=== PATIENT | female | born 1965 | race Caucasian/White ===

== ENCOUNTER 2017-08-16 23:50 | Emergency (ER) | payer OTHER ==
[2017-08-17 00:01] VITALS: BP 144/96
--- NOTE | 2017-08-17 00:34 | EDM.PDOC ---
ED HPI GENERAL MEDICAL PROBLEM - General Chief Complaint: Lower Extremity Injury/Pain Stated Complaint: CAST CUTTING OFF CIRCULATION Time Seen by Provider: 08/17/17 00:09 Source of Information: Reports: Patient History Limitations: Reports: No Limitations - History of Present Illness INITIAL COMMENTS - FREE TEXT/NARRATIVE: The patient presents with pain to her left foot. She has a pressure ulcer on her left great toe. She has had this for months and she is now seeing Dr Sen and she has a cast on her foot for 10 days and then it is replaced. She had this current cast put on Monday. There is a crease to the top of her foot and that is causing her pain. She is a diabetic and she can feel the pain so she knows it is bad. She has some peripheral neuropathy. Onset: Gradual Duration: Day(s): Location: Reports: Lower Extremity, Left (foot) Quality: Reports: Sharp Severity: Moderate Improves with: Reports: None Worsens with: Reports: None Associated Symptoms: Reports: No Other Symptoms Left Feet Pain Score (Numeric/FACES): 5 - Related Data Allergies Allergy/AdvReac Type Severity Reaction Status Date / Time latex Allergy Rash Verified 08/11/15 18:31 metformin Allergy Diarrhea Verified 08/17/17 00:01 Home Meds: Home Meds Acetaminophen/HYDROcodone [[place] 325-5 MG] 1 tab PO Q6H PRN #8 tab 10/05/14 [Rx] Furosemide 40 mg PO DAILY 10/05/14 [History] Insulin Glarg,Human.Rec.Analog [LantUS] 40 unit SUBCUT DAILY 10/05/14 [History] Levothyroxine [Sythroid] 100 mcg PO DAILY 10/05/14 [History] Pantoprazole [Protonix] 40 mg PO DAILY 10/05/14 [History] Ramipril [Altace] 20 mg PO DAILY 10/05/14 [History] Sertraline [Zoloft] 100 mg PO DAILY 10/05/14 [History] Vitamin D. 1 tab PO DAILY 10/05/14 [History] Zolpidem [Ambien] 5 mg PO BEDTIME PRN 10/05/14 [History] amLODIPine Besylate [Amlodipine Besylate] 10 mg PO DAILY 10/05/14 [History] Amoxicillin/Clavulanate K [Augmentin 875 MG/125 MG] 1 tab PO Q12HR #13 tablet [Rx] Past Medical History Genitourinary History: Reports: UTI, Recurrent Musculoskeletal History: Reports: Arthritis Psychiatric History: Reports: Anxiety, Depression, Mood Swings Endocrine/Metabolic History: Reports: Diabetes, Type II, Hypothyroidism, Obesity /BMI 30+, Vitamin D Deficiency Dermatologic History: Reports: Psoriasis - Past Surgical History GI Surgical History: Reports: Appendectomy, Cholecystectomy, Other (See Below) Other GI Surgeries/Procedures: gastric bipass Female Surgical History: Reports: Hysterectomy, Other (See Below) Other Female Surgeries/Procedures: bladder sling Social & Family History - Family History Family Medical History: Noncontributory - Tobacco Use Smoking Status *Q: Never Smoker Second Hand Smoke Exposure: No - Caffeine Use Caffeine Use: Reports: Soda - Alcohol Use Days Per Week of Alcohol Use: 0 - Recreational Drug Use Recreational Drug Use: No Review of Systems - Review of Systems Review Of Systems: See Below Constitutional: Reports: No Symptoms Eyes: Reports: No Symptoms Ears: Reports: No Symptoms Nose: Reports: No Symptoms Mouth/Throat: Reports: No Symptoms Respiratory: Reports: No Symptoms Cardiovascular: Reports: No Symptoms GI/Abdominal: Reports: No Symptoms Genitourinary: Reports: No Symptoms Musculoskeletal: Reports: Other (Left foot pain) ED EXAM, GENERAL - Physical Exam Exam: See Below Exam Limited By: No Limitations General Appearance: Alert, No Apparent Distress Ears: Normal External Exam Nose: Normal Inspection Head: Atraumatic, Normocephalic Neck: Normal Inspection Respiratory/Chest: No Respiratory Distress Extremities: Other (Left foot has a cast that completely covers here foot and goes up to the knee. I cut it off and he toe has a dressing on. There is no pressure ulcer. There is some psoriasis on her foot.) Course - Vital Signs Last Recorded V/S: Last Vital Signs Temp 96.5 F 08/16/17 23:56 Pulse 82 08/16/17 23:56 Resp 18 08/16/17 23:56 BP 144/96 H 08/16/17 23:56 Pulse Ox 96 08/16/17 23:56 - Re-Assessments/Exams Free Text/Narrative Re-Assessment/Exam: 08/17/17 00:32 I cut her cast off. She feels better. She has a walking shoe. I will have her call Dr Sen in the morning. Departure - Departure Time of Disposition: 00:35 Disposition: Home, Self-Care 01 Condition: Good Clinical Impression: Skin ulcer of left great toe Qualifiers: Non-pressure ulcer stage: unspecified non-pressure ulcer stage Qualified Code(s ): L97.529 - Non-pressure chronic ulcer of other part of left foot with unspecified severity - Discharge Information Referrals: Denise Ho MD [Primary Care Provider] - Joel Sen II DPM [Physician] - Additional Instructions: Call Dr Sen's office in the morning. Please return if you are worse.
== END 2017-08-17 00:41 | disposition home or self-care (01) ==
LOC: JD.ED 23:50
DX: E11.622 Type 2 diabetes mellitus with other skin ulcer (principal); L97.529 Non-pressure chronic ulcer of other part of left foot with unspecified severity; F32.9 Major depressive disorder, single episode, unspecified; E03.9 Hypothyroidism, unspecified; Z79.4 Long term (current) use of insulin; Z79.899 Other long term (current) drug therapy; Z88.8 Allergy status to other drugs, medicaments and biological substances; Z91.040 Latex allergy status
CPT/HCPCS: 99283

== ENCOUNTER 2018-10-08 09:33 | Emergency (ER) | payer OTHER ==
[2018-10-08] MEDS ORDERED: Sodium Chloride 0.9% 1,000 ML IV ONE ×4 (09:46→12:21)
[2018-10-08] MEDS ORDERED: Sodium Chloride 0.9% 10 ML Syringe FLUSH PRN (10:03)
[2018-10-08] MEDS ORDERED: Insulin Regular, Human 100 Units/ML 3 ML Vial IVPUSH ONE (10:04)
--- NOTE | 2018-10-08 11:06 | EDM.PDOC ---
ED HPI GENERAL MEDICAL PROBLEM - General Chief Complaint: Diabetic Complaint Stated Complaint: [facility] Time Seen by Provider: 10/08/18 09:57 Source of Information: Reports: Patient, RN Notes Reviewed - History of Present Illness INITIAL COMMENTS - FREE TEXT/NARRATIVE: 53-year-old female has not felt well for the past 7-10 days. He should does present with altered mental status so history is primarily obtained from her and EMS. Her states that she has been coughing, not feeling well for the last 10 days or so. Also has had similar symptoms and has tested influenza positive. This morning she fell either into or against a balanced of and "could not get up" she has been transported here by [facility]. She is known insulin-dependent diabetic. Her blood sugar reading on arrival is greater than 400. She is not able to tell us at this time when her glucose started going up. Treatments NEONATAL DOCTOR: Reports: Other (see below) Other Treatments NEONATAL DOCTOR: see EMS report - Related Data Allergies Allergy/AdvReac Type Severity Reaction Status Date / Time latex Allergy Rash Verified 10/08/18 09:50 metformin AdvReac Diarrhea Verified 10/08/18 10:14 Home Meds: Home Meds Acetaminophen/HYDROcodone [[place] 325-5 MG] 1 tab PO Q6H PRN #8 tab 10/05/14 [Rx] Furosemide 40 mg PO DAILY 10/05/14 [History] Insulin Glarg,Human.Rec.Analog [LantUS] 0 unit SUBCUT DAILY 10/05/14 [History] Levothyroxine [Sythroid] 200 mcg PO MOFR 10/05/14 [History] Pantoprazole [Protonix] 40 mg PO DAILY 10/05/14 [History] Ramipril [Altace] 10 mg PO BID 10/05/14 [History] Sertraline [Zoloft] 150 mg PO DAILY 10/05/14 [History] Zolpidem [Ambien] 5 mg PO BEDTIME PRN 10/05/14 [History] Fobgn-A-Ukzhvocpoqrmk [Anti-Gas] 600 mg PO ASDIRECTED 10/08/18 [History] Cholecalciferol (Vitamin D3) [Vitamin D3] 5,000 intnl unit PO DAILY 10/08/18 [ History] Cyanocobalamin (Vitamin B-12) [Vitamin B12] 2,500 mcg PO DAILY 10/08/18 [History ] Cyclobenzaprine [Flexeril] 0 mg PO ASDIRECTED 10/08/18 [History] Ferrous Sulfate [Iron] 0 mg PO DAILY 10/08/18 [History] Folic Acid 800 mcg PO DAILY 10/08/18 [History] Iron,Carbonyl/Ascorbic Acid [Iron 100-Vitamin C Tablet] 65 mg PO DAILY 10/08/18 [History] L.acidoph,Paracasei, B.lactis [Probiotic] 1 cap PO DAILY 10/08/18 [History] Levothyroxine 175 mcg PO SUTUWETHSA 10/08/18 [History] Vitamin B6-pyridOXINE 100 mg PO DAILY 10/08/18 [History] buPROPion HCl [Wellbutrin SR] 150 mg PO DAILY 10/08/18 [History] hydrOXYzine HCl [hydrOXYzine] 75 mg PO BEDTIME 10/08/18 [History] Past Medical History Genitourinary History: Reports: UTI, Recurrent Musculoskeletal History: Reports: Arthritis Psychiatric History: Reports: Anxiety, Depression, Mood Swings Endocrine/Metabolic History: Reports: Diabetes, Type II, Hypothyroidism, Obesity /BMI 30+, Vitamin D Deficiency Dermatologic History: Reports: Psoriasis - Past Surgical History GI Surgical History: Reports: Appendectomy, Cholecystectomy, Other (See Below) Other GI Surgeries/Procedures: gastric bipass Female Surgical History: Reports: Hysterectomy, Other (See Below) Other Female Surgeries/Procedures: bladder sling Social & Family History - Family History Family Medical History: Noncontributory - Caffeine Use Caffeine Use: Reports: Soda ED ROS GENERAL - Review of Systems Review Of Systems: Unable To Obtain (Unable to obtain reliable complete review of systems due to altered mental status of patient, she currently does deny chest or abdominal pain, denies headache) Cardiovascular: Denies: Chest Pain GI/Abdominal: Denies: Abdominal Pain ED EXAM GENERAL NO PERIP PULSE - Physical Exam Exam: See Below General Appearance: Other (Awake but very ill-appearing) Eye Exam: Bilateral Eye: PERRL, Other (Eyes are sunken bilateral) Ears: Normal External Exam Throat/Mouth: Other (Mucosa very dry) Head: Atraumatic Neck: Supple, Non-Tender Respiratory/Chest: No Respiratory Distress, Lungs Clear, Respiratory Distress. No: Rales, Rhonchi, Wheezing Cardiovascular: Tachycardia GI/Abdominal: Soft, Non-Tender. No: Guarding Extremities: Normal Inspection, Normal Range of Motion Neurological: Alert, Oriented, No Motor/Sensory Deficits Skin Exam: Warm, Dry, Pallor Course - Vital Signs Last Recorded V/S: Last Vital Signs Temp 97.7 F 10/08/18 09:50 Pulse 109 H 10/08/18 09:50 Resp 28 H 10/08/18 09:50 BP 118/81 10/08/18 09:50 Pulse Ox 99 10/08/18 09:50 - Orders/Labs/Meds Orders: Active Orders 24 hr Category Date Time Status Insert Kennedy Catheter [Insert Urinary Catheter] [OM.PC] Care 10/08/18 10:50 Ordered Stat Peripheral IV Care [RC] . DIRECTED Care 10/08/18 10:03 Active Urinary Catheter Assessment [RC] ASDIRECTED Care 10/08/18 10:50 Active Insulin Regular, Human [HumuLIN R] 100 unit Med 10/08/18 10:15 Active Sodium Chloride 0.9% [Normal Saline] 99 ml IV TITRATE Sodium Bicarbonate [Sodium Bicarbonate 8.4%] 150 meq Med 10/08/18 14:09 Active Dextrose 5% in Water 1,000 ml IV ONETIME Sodium Chloride 0.9% [Normal Saline] 2,000 ml Med 10/08/18 13:01 Active IV ONETIME Sodium Chloride 0.9% [Normal Saline] 2,000 ml Med 10/08/18 14:16 Active IV ONETIME Sodium Chloride 0.9% [Saline Flush] Med 10/08/18 10:03 Active 10 ml FLUSH ASDIRECTED PRN Peripheral IV Insertion Adult [OM.PC] Stat Oth 10/08/18 10:03 Ordered Medication Orders Insulin Human Regular 100 unit (/ Sodium Chloride) 100 mls @ 5 mls/hr IV TITRATE LALITHA; Protocol Last Admin: 10/08/18 10:34 Dose: 5 units/hr, 5 mls/hr Sodium Chloride (Normal Saline) 2,000 mls @ 999 mls/hr IV ONETIME ONE Stop: 10/08/18 15:01 Last Admin: 10/08/18 13:10 Dose: 999 mls/hr Sodium Bicarbonate 150 meq/ (Dextrose/Water) 1,150 mls @ 150 mls/hr IV ONETIME ONE Stop: 10/08/18 21:48 Sodium Chloride (Normal Saline) 2,000 mls @ 999 mls/hr IV ONETIME ONE Stop: 10/08/18 16:16 Last Admin: 10/08/18 14:20 Dose: 999 mls/hr Sodium Chloride (Saline Flush) 10 ml FLUSH ASDIRECTED PRN PRN Reason: Keep Vein Open Last Admin: 10/08/18 10:38 Dose: 10 ml Labs: Laboratory Tests 10/08/18 10/08/18 10/08/18 Range/Units 09:45 09:45 09:45 WBC 22.59 H (3.98-10.04) K/mm3 RBC 4.92 (3.98-5.22) M/mm3 Hgb 13.2 (11.2-15.7) gm/L Hct 41.6 (34.1-44.9) % MCV 84.6 (79.4-94.8) fl MCH 26.8 (25.6-32.2) pg MCHC 31.7 L (32.2-35.5) g/dl RDW Std Deviation 49.8 H (36.4-46.3) fL Plt Count 599 H (182-369) K/mm3 MPV 10.8 (9.4-12.3) fl Neut % (Auto) 73.7 H (34.0-71.1) % Lymph % (Auto) 11.5 L (19.3-51.7) % [place] % (Auto) 10.9 (4.7-12.5) % Eos % (Auto) 0.3 L (0.7-5.8) Baso % (Auto) 0.4 (0.1-1.2) % Neut # (Auto) 16.63 H (1.56-6.13) K/mm3 Lymph # (Auto) 2.60 (1.18-3.74) K/mm3 [place] # (Auto) 2.47 H (0.24-0.36) K/mm3 Eos # (Auto) 0.07 (0.04-0.36) K/mm3 Baso # (Auto) 0.09 H (0.01-0.08) K/mm3 Manual Slide Review Abnormal smear Puncture Site ABG pH (7.35-7.45) ABG pCO2 (35.0-45.0) mmHg ABG pO2 (80.0-100.0) mmHg ABG HCO3 (22.0-26.0) meq/L ABG O2 Saturation (96.0-97.0) % ABG Base Excess (-2-2.0) Jose Manuel Test A-a Gradient mmHg O2 Delivery Device FiO2 (21.00-100.00) % Sodium 125 L (136-145) mEq/L Potassium 6.7 H* (3.5-5.1) mEq/L Chloride 86 L (98-107) mEq/L Carbon Dioxide 5 L* (21-32) mEq/L Anion Gap 40.7 H (5-15) BUN 27 H (7-18) mg/dL Creatinine 2.3 H (0.55-1.02) mg/dL Est Cr Clr Drug Dosing TNP Estimated GFR (MDRD) 22 (>60) mL/min BUN/Creatinine Ratio 11.7 L (14-18) Glucose 659 H* (74-106) mg/dL Lactic Acid (0.4-2.0) mmol/L Calcium 9.5 (8.5-10.1) mg/dL Total Bilirubin 0.7 (0.2-1.0) mg/dL AST 26 (15-37) U/L ALT 44 (14-59) U/L Alkaline Phosphatase 227 H (46-116) U/L Total Protein 8.7 H (6.4-8.2) g/dl Albumin 3.3 L (3.4-5.0) g/dl Globulin 5.4 gm/dL Albumin/Globulin Ratio 0.6 L (1-2) Urine Color (Yellow) Urine Appearance (Clear) Urine pH (5.0-8.0) Ur Specific [place] (1.005-1.030) Urine Protein (Negative) Urine Glucose (UA) (Negative) Urine Ketones (Negative) Urine Occult Blood (Negative) Urine Nitrite (Negative) Urine Bilirubin (Negative) Urine Urobilinogen (0.2-1.0) Ur Leukocyte Esterase (Negative) Urine RBC (0-5) /hpf Urine WBC (0-5) /hpf Ur Epithelial Cells (0-5) /hpf Urine Bacteria (FEW) /hpf Hyaline Casts (0-5) /lpf Urine Mucus (FEW) /hpf Ketones 16.3 (0.0-0.3) mM 03/11/19 03/11/19 03/11/19 Range/Units 10:05 10:19 10:55 WBC (3.98-10.04) K/mm3 RBC (3.98-5.22) M/mm3 Hgb (11.2-15.7) gm/L Hct (34.1-44.9) % MCV (79.4-94.8) fl MCH (25.6-32.2) pg MCHC (32.2-35.5) g/dl RDW Std Deviation (36.4-46.3) fL Plt Count (182-369) K/mm3 MPV (9.4-12.3) fl Neut % (Auto) (34.0-71.1) % Lymph % (Auto) (19.3-51.7) % [place] % (Auto) (4.7-12.5) % Eos % (Auto) (0.7-5.8) Baso % (Auto) (0.1-1.2) % Neut # (Auto) (1.56-6.13) K/mm3 Lymph # (Auto) (1.18-3.74) K/mm3 [place] # (Auto) (0.24-0.36) K/mm3 Eos # (Auto) (0.04-0.36) K/mm3 Baso # (Auto) (0.01-0.08) K/mm3 Manual Slide Review Puncture Site Rt radial ABG pH 7.07 L* (7.35-7.45) ABG pCO2 10.8 L* (35.0-45.0) mmHg ABG pO2 106.0 H (80.0-100.0) mmHg ABG HCO3 3.0 L (22.0-26.0) meq/L ABG O2 Saturation 94.3 L (96.0-97.0) % ABG Base Excess -27.1 L (-2-2.0) Jose Manuel Test Positive A-a Gradient 15 mmHg O2 Delivery Device Room air FiO2 21.00 (21.00-100.00) % Sodium (136-145) mEq/L Potassium (3.5-5.1) mEq/L Chloride (98-107) mEq/L Carbon Dioxide (21-32) mEq/L Anion Gap (5-15) BUN (7-18) mg/dL Creatinine (0.55-1.02) mg/dL Est Cr Clr Drug Dosing Estimated GFR (MDRD) (>60) mL/min BUN/Creatinine Ratio (14-18) Glucose (74-106) mg/dL Lactic Acid 1.5 (0.4-2.0) mmol/L Calcium (8.5-10.1) mg/dL Total Bilirubin (0.2-1.0) mg/dL AST (15-37) U/L ALT (14-59) U/L Alkaline Phosphatase (46-116) U/L Total Protein (6.4-8.2) g/dl Albumin (3.4-5.0) g/dl Globulin gm/dL Albumin/Globulin Ratio (1-2) Urine Color Yellow (Yellow) Urine Appearance Cloudy H (Clear) Urine pH 5.5 (5.0-8.0) Ur Specific [place] 1.025 (1.005-1.030) Urine Protein 1+ H (Negative) Urine Glucose (UA) 2+ H (Negative) Urine Ketones 4+ H (Negative) Urine Occult Blood 1+ H (Negative) Urine Nitrite Negative (Negative) Urine Bilirubin 2+ H (Negative) Urine Urobilinogen 0.2 (0.2-1.0) Ur Leukocyte Esterase Negative (Negative) Urine RBC 0-5 (0-5) /hpf Urine WBC 0-5 (0-5) /hpf Ur Epithelial Cells Not seen (0-5) /hpf Urine Bacteria Not seen (FEW) /hpf Hyaline Casts 30-40 H (0-5) /lpf Urine Mucus Not seen (FEW) /hpf Ketones (0.0-0.3) mM 10/08/18 10/08/18 Range/Units 11:35 12:48 WBC (3.98-10.04) K/mm3 RBC (3.98-5.22) M/mm3 Hgb (11.2-15.7) gm/L Hct (34.1-44.9) % MCV (79.4-94.8) fl MCH (25.6-32.2) pg MCHC (32.2-35.5) g/dl RDW Std Deviation (36.4-46.3) fL Plt Count (182-369) K/mm3 MPV (9.4-12.3) fl Neut % (Auto) (34.0-71.1) % Lymph % (Auto) (19.3-51.7) % [place] % (Auto) (4.7-12.5) % Eos % (Auto) (0.7-5.8) Baso % (Auto) (0.1-1.2) % Neut # (Auto) (1.56-6.13) K/mm3 Lymph # (Auto) (1.18-3.74) K/mm3 [place] # (Auto) (0.24-0.36) K/mm3 Eos # (Auto) (0.04-0.36) K/mm3 Baso # (Auto) (0.01-0.08) K/mm3 Manual Slide Review Puncture Site Rt radial ABG pH 6.98 L* (7.35-7.45) ABG pCO2 17.2 L* (35.0-45.0) mmHg ABG pO2 121.0 H (80.0-100.0) mmHg ABG HCO3 3.8 L (22.0-26.0) meq/L ABG O2 Saturation 94.2 L (96.0-97.0) % ABG Base Excess -26.8 L (-2-2.0) Jose Manuel Test Positive A-a Gradient mmHg O2 Delivery Device Room air FiO2 21.00 (21.00-100.00) % Sodium 131 L (136-145) mEq/L Potassium 5.3 H (3.5-5.1) mEq/L Chloride 93 L (98-107) mEq/L Carbon Dioxide 6 L* (21-32) mEq/L Anion Gap 37.3 H (5-15) BUN 28 H (7-18) mg/dL Creatinine 2.2 H (0.55-1.02) mg/dL Est Cr Clr Drug Dosing TNP Estimated GFR (MDRD) 23 (>60) mL/min BUN/Creatinine Ratio 12.7 L (14-18) Glucose 499 H (74-106) mg/dL Lactic Acid (0.4-2.0) mmol/L Calcium 8.8 (8.5-10.1) mg/dL Total Bilirubin 0.6 (0.2-1.0) mg/dL AST 25 (15-37) U/L ALT 41 (14-59) U/L Alkaline Phosphatase 210 H (46-116) U/L Total Protein 8.0 (6.4-8.2) g/dl Albumin 3.0 L (3.4-5.0) g/dl Globulin 5.0 gm/dL Albumin/Globulin Ratio 0.6 L (1-2) Urine Color (Yellow) Urine Appearance (Clear) Urine pH (5.0-8.0) Ur Specific [place] (1.005-1.030) Urine Protein (Negative) Urine Glucose (UA) (Negative) Urine Ketones (Negative) Urine Occult Blood (Negative) Urine Nitrite (Negative) Urine Bilirubin (Negative) Urine Urobilinogen (0.2-1.0) Ur Leukocyte Esterase (Negative) Urine RBC (0-5) /hpf Urine WBC (0-5) /hpf Ur Epithelial Cells (0-5) /hpf Urine Bacteria (FEW) /hpf Hyaline Casts (0-5) /lpf Urine Mucus (FEW) /hpf Ketones (0.0-0.3) mM Meds: Medications Generic Name Dose Route Start Last Admin Trade Name Freq PRN Reason Stop Dose Admin Insulin Human Regular 100 unit 100 mls @ 5 mls/hr 10/08/18 10:15 10/08/18 10: 34 / Sodium Chloride IV 5 units/hr TITRATE LALITHA 5 mls/hr Administration Protocol 5 UNITS/HR Sodium Chloride 2,000 mls @ 999 mls/hr 10/08/18 13:01 10/08/18 13:10 Normal Saline IV 10/08/18 15:01 999 mls/hr ONETIME ONE Administration Sodium Bicarbonate 150 meq/ 1,150 mls @ 150 mls/hr 10/08/18 14:09 Dextrose/Water IV 10/08/18 21:48 ONETIME ONE Sodium Chloride 2,000 mls @ 999 mls/hr 10/08/18 14:16 10/08/18 14:20 Normal Saline IV 10/08/18 16:16 999 mls/hr ONETIME ONE Administration Sodium Chloride 10 ml 10/08/18 10:03 10/08/18 10:38 Saline Flush FLUSH 10 ml ASDIRECTED PRN Administration Keep Vein Open Discontinued Medications Generic Name Dose Route Start Last Admin Trade Name Freq PRN Reason Stop Dose Admin Sodium Chloride 1,000 mls @ 999 mls/hr 10/08/18 09:46 10/08/18 09:55 Normal Saline IV 10/08/18 10:46 999 mls/hr ONETIME ONE Administration Sodium Chloride 1,000 mls @ 999 mls/hr 10/08/18 10:15 10/08/18 10:25 Normal Saline IV 10/08/18 11:15 999 mls/hr ONETIME ONE Administration Sodium Chloride 1,000 mls @ 999 mls/hr 10/08/18 11:47 10/08/18 11:53 Normal Saline IV 10/08/18 12:47 999 mls/hr ONETIME ONE Administration Sodium Chloride 1,000 mls @ 999 mls/hr 10/08/18 12:21 10/08/18 12:28 Normal Saline IV 10/08/18 13:21 999 mls/hr ONETIME ONE Administration Insulin Human Regular 5 unit 10/08/18 10:04 10/08/18 10:29 Humulin R IVPUSH 10/08/18 10:05 5 unit ONETIME ONE Administration Protocol Oseltamivir Phosphate 75 mg 10/08/18 12:18 10/08/18 12:32 Tamiflu PO 10/08/18 12:19 75 mg ONETIME ONE Administration - Re-Assessments/Exams Free Text/Narrative Re-Assessment/Exam: 10/08/18 11:31. Patient presented with elevated blood sugar, generalized weakness, altered mental status. Initial blood sugar reading was greater than 400. She clinically is obviously very dehydrated on initial exam was very dry mouth, sunken tongue, increased respirations and altered mental status for a suggestive for diabetic ketoacidosis. ABGs do confirm severe diabetic ketoacidosis with pH 7.07, bicarbonate of only 3, CO2 10.8. Venous labs show sodium 125, artificially low with a high blood sugar, potassium 6.7 artificial high with her acidosis. anion Gap of 40.7 BUN 27 creatinine 2.3 lactic acid 1.5 ketones 16.3. We do have 2 IVs going of normal saline wide open, she was initially given insulin 5 units IV and have her on insulin drip at 5 units per hour. 10/08/18 12:14. Repeat labs drawn a short time ago show glucose of 499, potassium improved to 5.3, CO2 of 6, see report for details. Have discussed with Dr. Orozco, regarding admisison. 13:00. Repeat ABGs, pH is actually worsened the 6.98, CO2 has risen to 17.2, PO2 121. Mental status remains about the same, she still is drowsy but very aware of what is going on, does answer questions appropriately. She's had a total of 4 L normal saline, working on liters 5 and 6. Insulin drip continues at 5 units per hour. 10/08/18 13:45. Dr Orozco has requested transfer to a [facility], will need higher level of care, projected stay beyond our "4 day limitation for length of stay"14:12. Dr Dimas, Critical Care Medicine does accept patient in transfer, he has advised start a bicarb drip. That is getting done. Will be transferring by ground ambulance. Departure - Departure Time of Disposition: 14:15 Disposition: DC/Tfer to Acute Hospital 02 Condition: Critical Clinical Impression: Diabetic ketoacidosis Qualifiers: Diabetes mellitus type: due to underlying condition Diabetes mellitus complication detail: without coma Qualified Code(s): E08.10 - Diabetes mellitus due to underlying condition with ketoacidosis without coma - Discharge Information Referrals: PCP,Unknown [Primary Care Provider] - Forms: ED Department Discharge ED Communication - Discussed Case With (1) Discussed Case With (1): Admitting Provider (Dr Orozco, decision to admit at about 12:05.) - My Orders Last 24 Hours: My Active Orders 10/08/18 10:03 Peripheral IV Care [RC] . DIRECTED Sodium Chloride 0.9% [Saline Flush] 10 ml FLUSH ASDIRECTED PRN Peripheral IV Insertion Adult [OM.PC] Stat 10/08/18 10:15 Insulin Regular, Human [HumuLIN R] 100 unit Sodium Chloride 0.9% [Normal Saline] 99 ml IV TITRATE 10/08/18 10:50 Insert Kennedy Catheter [Insert Urinary Catheter] [OM.PC] Stat Urinary Catheter Assessment [RC] ASDIRECTED 10/08/18 13:01 Sodium Chloride 0.9% [Normal Saline] 2,000 ml IV ONETIME 10/08/18 14:09 Sodium Bicarbonate [Sodium Bicarbonate 8.4%] 150 meq Dextrose 5% in Water 1, 000 ml IV ONETIME 10/08/18 14:16 Sodium Chloride 0.9% [Normal Saline] 2,000 ml IV ONETIME - Assessment/Plan Last 24 Hours: My Active Orders 10/08/18 10:03 Peripheral IV Care [RC] . DIRECTED Sodium Chloride 0.9% [Saline Flush] 10 ml FLUSH ASDIRECTED PRN Peripheral IV Insertion Adult [OM.PC] Stat 10/08/18 10:15 Insulin Regular, Human [HumuLIN R] 100 unit Sodium Chloride 0.9% [Normal Saline] 99 ml IV TITRATE 10/08/18 10:50 Insert Kennedy Catheter [Insert Urinary Catheter] [OM.PC] Stat Urinary Catheter Assessment [RC] ASDIRECTED 10/08/18 13:01 Sodium Chloride 0.9% [Normal Saline] 2,000 ml IV ONETIME 10/08/18 14:09 Sodium Bicarbonate [Sodium Bicarbonate 8.4%] 150 meq Dextrose 5% in Water 1, 000 ml IV ONETIME 10/08/18 14:16 Sodium Chloride 0.9% [Normal Saline] 2,000 ml IV ONETIME
--- NOTE | 2018-10-08 11:58 | CR ---
Chest: Portable view of the chest was obtained. Comparison: No prior chest x-ray. Heart size and mediastinum are normal. Lungs are clear with no acute parenchymal change. Bony structures are grossly intact. Impression: 1. Nothing acute is seen on portable chest x-ray. Diagnostic code #1
[2018-10-08] MEDS ORDERED: Oseltamivir 75 MG Cap PO ONE (12:18)
[2018-10-08] MEDS ORDERED: Sodium Chloride 0.9% 2,000 ML IV ONE ×2 (13:01→14:16)
[2018-10-08] MEDS ORDERED: Sodium Bicarbonate 150 MEQ in Dextrose 5% in Water 1,000 ML IV ONE ×2 (14:09)
[2018-10-08 18:14] VITALS: BP 135/81
== END 2018-10-08 15:35 ==
LOC: JD.ED 09:33
DX: E08.10 Diabetes mellitus due to underlying condition with ketoacidosis without coma (principal); F41.9 Anxiety disorder, unspecified; F32.9 Major depressive disorder, single episode, unspecified; E03.9 Hypothyroidism, unspecified; Z91.040 Latex allergy status; Z88.8 Allergy status to other drugs, medicaments and biological substances; Z79.899 Other long term (current) drug therapy; Z79.4 Long term (current) use of insulin
CPT/HCPCS: 36415; 36600; 51702; 71045; 80053; 81001; 82009; 82803; 82962; 83605; 85025; 87804; 96361; 96365; 96366; 96368; 96376; 99285; A9270; J1815; J7030; J7040; J7060

== ENCOUNTER 2021-07-03 18:39 | Emergency (ER) | payer MEDICARE, OTHER ==
[2021-07-03 18:58] VITALS: BP 133/80; PULSE 87
[2021-07-03] MEDS ORDERED: Ampicillin/Sulbactam Na 3 GM in Sodium Chloride 0.9% 100 ML IV ONE (19:36)
--- NOTE | 2021-07-03 19:49 | EDM.PDOC ---
ED HPI GENERAL MEDICAL PROBLEM - General Chief Complaint: Lower Extremity Injury/Pain Stated Complaint: RT FOOT PAIN Time Seen by Provider: 07/03/21 19:30 Source of Information: Reports: Patient History Limitations: Reports: No Limitations - History of Present Illness INITIAL COMMENTS - FREE TEXT/NARRATIVE: Patient is a 55-year-old female with a history of diabetes presenting with a chief complaint of right foot pain. She states the pain started on Monday. She states that she believes she stepped on a piece of glass. She did get a small piece of glass that came out. However, the pain continued. She started noticed some redness in the area. She went to her doctor yesterday and was started on doxycycline after an x-ray was performed. She has taken a total of 3 doses of doxycycline. Otherwise, she denies any fevers, chills, fatigue, lethargy, nausea, vomiting. Patient does have pain with ambulation. Right Foot Pain Score (Numeric/FACES): 5 - Related Data Allergies Allergy/AdvReac Type Severity Reaction Status Date / Time latex Allergy Rash Verified 07/03/21 18:58 metformin AdvReac Diarrhea Verified 07/03/21 18:58 Home Meds: Home Meds Acetaminophen/HYDROcodone [HYDROcodone-Acetaminophen 5-325 MG *] 1 tab PO Q6H PRN #8 tab 10/05/14 [Rx] Furosemide 40 mg PO DAILY 10/05/14 [History] Insulin Glarg,Human.Rec.Analog [LantUS] 0 unit SUBCUT DAILY 10/05/14 [History] Levothyroxine [Sythroid] 200 mcg PO MOFR 10/05/14 [History] Pantoprazole [Protonix] 40 mg PO DAILY 10/05/14 [History] Sertraline [Zoloft] 150 mg PO DAILY 10/05/14 [History] Zolpidem [Ambien] 5 mg PO BEDTIME PRN 10/05/14 [History] ramipriL [Altace] 10 mg PO BID 10/05/14 [History] Bjfec-E-Vjerthmaiajio [Anti-Gas] 600 mg PO ASDIRECTED 10/08/18 [History] Cholecalciferol (Vitamin D3) [Vitamin D3] 5,000 intnl unit PO DAILY 10/08/18 [History] Cyanocobalamin (Vitamin B-12) [Vitamin B12] 2,500 mcg PO DAILY 10/08/18 [History] Cyclobenzaprine [Flexeril] 0 mg PO ASDIRECTED 10/08/18 [History] Ferrous Sulfate [Iron] 0 mg PO DAILY 10/08/18 [History] Folic Acid 800 mcg PO DAILY 10/08/18 [History] Iron,Carbonyl/Ascorbic Acid [Iron 100-Vitamin C Tablet] 65 mg PO DAILY 10/08/18 [History] L.acidoph,Paracasei, B.lactis [Probiotic] 1 cap PO DAILY 10/08/18 [History] Levothyroxine 175 mcg PO SUTUWETHSA 10/08/18 [History] Vitamin B6-pyridOXINE 100 mg PO DAILY 10/08/18 [History] buPROPion HCL [Wellbutrin SR] 150 mg PO DAILY 10/08/18 [History] hydrOXYzine HCL [hydrOXYzine] 75 mg PO BEDTIME 10/08/18 [History] Past Medical History HEENT History: Reports: Impaired Vision Other HEENT History: wears reading eyeglasses. Cardiovascular History: Reports: High Cholesterol, Hypertension Gastrointestinal History: Reports: GERD, Other (See Below) Other Gastrointestinal History: occasional vomiting, tummy tuck with massive infection after surgery. 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 - Past Surgical History GI Surgical History: Reports: Appendectomy, Cholecystectomy, Other (See Below) Other GI Surgeries/Procedures: gastric bipass Female Surgical History: Reports: Hysterectomy, Other (See Below) Other Female Surgeries/Procedures: bladder sling Musculoskeletal Surgical History: Reports: Hip Replacement Social & Family History - Family History Family Medical History: No Pertinent Family History - Tobacco Use Tobacco Use Status *Q: Never Tobacco User Second Hand Smoke Exposure: No - Caffeine Use Caffeine Use: Reports: Soda Review of Systems - Review of Systems Review Of Systems: Comprehensive ROS is negative, except as noted in HPI. ED EXAM, GENERAL - Physical Exam Exam: See Below Free Text/Narrative:: I have reviewed the triage vital signs Const: Well nourished, well developed, appears stated age Eyes: Pupils Equal and reactive to light bilaterally, no conjunctival injection HENT: No signs of trauma or swelling, Neck supple without meningismus CV: Regular Rate Rhythm, Warm, well-perfused extremities RESP: Unlabored respiratory effort GI: soft, non-tender, non-distended, no masses MSK: No gross deformities appreciated Skin: Right foot demonstrates small area of erythema with mild swelling located on the lateral aspect of the plantar surface of the foot. There is some small amount of streaking to the dorsum of the foot. That extends approximately to the midfoot but not to the ankle at all. Warm, dry. 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 Sensation and motor function of extremities grossly intact. Psych: Appropriate mood and affect. Course - Vital Signs Last Recorded V/S: Last Vital Signs Temp 36.2 C 07/03/21 18:55 Pulse 87 07/03/21 18:55 Resp 16 07/03/21 18:55 BP 133/80 07/03/21 18:55 Pulse Ox 100 07/03/21 18:55 - Orders/Labs/Meds Orders: Active Orders 24 hr Category Date Time Status CULTURE, ANAEROBE & AEROBE [MREF] Stat Lab 07/03/21 19:34 Received Labs: Laboratory Tests 07/03/21 07/03/21 07/03/21 Range/Units 20:00 20:00 20:00 WBC 11.02 H (3.98-10.04) K/mm3 RBC 3.73 L (3.98-5.22) M/mm3 Hgb 11.0 L D (11.2-15.7) gm/dl Hct 34.7 (34.1-44.9) % MCV 93.0 D (79.4-94.8) fl MCH 29.5 (25.6-32.2) pg MCHC 31.7 L (32.2-35.5) g/dl RDW Std Deviation 46.0 (36.4-46.3) fL Plt Count 364 D (182-369) K/mm3 MPV 10.5 (9.4-12.3) fl Neut % (Auto) 58.9 (34.0-71.1) % Lymph % (Auto) 20.1 (19.3-51.7) % [place] % (Auto) 13.8 H (4.7-12.5) % Eos % (Auto) 6.5 H (0.7-5.8) Baso % (Auto) 0.4 (0.1-1.2) % Neut # (Auto) 6.50 H (1.56-6.13) K/mm3 Lymph # (Auto) 2.21 (1.18-3.74) K/mm3 [place] # (Auto) 1.52 H (0.24-0.36) K/mm3 Eos # (Auto) 0.72 H (0.04-0.36) K/mm3 Baso # (Auto) 0.04 (0.01-0.08) K/mm3 Manual Slide Review Abnormal smear Sodium 140 (136-145) mEq/L Potassium 3.7 D (3.5-5.1) mEq/L Chloride 103 (98-107) mEq/L Carbon Dioxide 27 D (21-32) mEq/L Anion Gap 13.7 (5-15) BUN 22 H (7-18) mg/dL Creatinine 1.1 H (0.55-1.02) mg/dL Est Cr Clr Drug Dosing TNP Estimated GFR (MDRD) 52 (>60) mL/min BUN/Creatinine Ratio 20.0 H (14-18) Glucose 91 (70-99) mg/dL Lactic Acid 1.3 (0.4-2.0) mmol/L Calcium 8.8 (8.5-10.1) mg/dL Total Bilirubin 0.5 (0.2-1.0) mg/dL AST 27 (15-37) U/L ALT 49 (14-59) U/L Alkaline Phosphatase 155 H (46-116) U/L Total Protein 6.5 (6.4-8.2) g/dl Albumin 3.1 L (3.4-5.0) g/dl Globulin 3.4 gm/dL Albumin/Globulin Ratio 0.9 L (1-2) Meds: Medications Discontinued Medications Generic Name Dose Route Start Last Admin Trade Name Alan PRN Reason Stop Dose Admin Ampicillin Sodium/Sulbactam 100 mls @ 200 mls/hr 07/03/21 19:36 07/03/21 20:29 Sodium 3 gm/ Sodium Chloride IV 07/03/21 20:05 200 mls/hr ONETIME ONE Administration Morphine Sulfate 4 mg 07/03/21 19:52 07/03/21 20:20 Morphine 4 Mg/Ml Syringe IVPUSH 07/03/21 19:53 4 mg ONETIME ONE Administration Departure - Departure Time of Disposition: 20:52 Disposition: Home, Self-Care 01 Clinical Impression: Cellulitis of right foot - Discharge Information Instructions: Cellulitis, Adult, [id number] Referrals: Kiran Stevens MD [Primary Care Provider] - Forms: ED Department Discharge Additional Instructions: Please take antibiotics as directed. Use Augmentin as well as doxycycline together. If after 24 hours, the redness continues to spread and discharge develop fevers, you should return to the emergency room. Otherwise, follow-up with primary care and podiatry next week. Sepsis Event Note (ED) - Evaluation Sepsis Screening Result: No Definite Risk - Focused Exam Vital Signs: Vital Signs Temp Pulse Resp BP Pulse Ox 07/03/21 18:55 36.2 C 87 16 133/80 100 - My Orders Last 24 Hours: My Active Orders 07/03/21 19:34 CULTURE, ANAEROBE & AEROBE [MREF] Stat - Assessment/Plan Last 24 Hours: My Active Orders 07/03/21 19:34 CULTURE, ANAEROBE & AEROBE [MREF] Stat Assessment:: Patient is a 55-year-old female presented to the emergency room with complaint of foot pain. A bedside ultrasound was performed to evaluate for retained foreign body or large abscess. No evidence of either these on ultrasound examination. Laboratory studies do not demonstrate any evidence of sepsis or systemic infection. At this point in time, patient does have cellulitis and would benefit from more appropriate broad antibiotic coverage. She was given 1 dose of Unasyn in the emergency room and discharged with Augmentin. Recommended continued use of doxycycline as well. Return precautions discussed. Patient agrees with plan of care.
[2021-07-03] MEDS ORDERED: Morphine 4 MG/ML Syringe IVPUSH ONE (19:52)
== END 2021-07-03 21:11 | disposition home or self-care (01) ==
LOC: JD.ED 18:39
DX: L03.115 Cellulitis of right lower limb (principal); E11.9 Type 2 diabetes mellitus without complications; E03.9 Hypothyroidism, unspecified; K21.9 Gastro-esophageal reflux disease without esophagitis; E78.00 Pure hypercholesterolemia, unspecified; I10 Essential (primary) hypertension; E66.9 Obesity, unspecified; Z68.30 Body mass index [BMI] 30.0-30.9, adult; Z91.040 Latex allergy status; Z88.8 Allergy status to other drugs, medicaments and biological substances; Z79.4 Long term (current) use of insulin; Z79.899 Other long term (current) drug therapy
CPT/HCPCS: 36415; 80053; 83605; 85025; 87070; 87077; 87186; 87205; 96365; 96375; 99283; J0295; J2270; 87075

== ENCOUNTER 2021-09-19 16:33 | Inpatient (IN) | payer MEDICARE, OTHER ==
[2021-09-19] MEDS ORDERED: Sodium Chloride 0.9% 1,000 ML IV ONE (17:44)
[2021-09-19] MEDS ORDERED: cefTRIAXone 1 GM in Sodium Chloride 0.9% 100 ML IV ONE (19:42)
[2021-09-19] MEDS ORDERED: Acetaminophen 325 MG Tab PO ONE (19:54)
[2021-09-19] MEDS ORDERED: Ondansetron 4 MG/2 ML SDV IV PRN (21:14)
[2021-09-19] MEDS: Sodium Chloride 0.9% 1,000 ML IV SCH (22:47)
[2021-09-19] MEDS: Insulin Lispro 100 Unit/ML 3 ML KwikPen SUBCUT SCH (22:51)
[2021-09-20] MEDS: oxyCODONE 5 MG Tab PO PRN ×3 (05:03→21:55)
[2021-09-20] MEDS: Sodium Chloride 0.9% 1,000 ML IV SCH ×2 (05:33→13:36)
[2021-09-20 07:28] LABS: HEMOGLOBIN A1C 10.7 %
[2021-09-20] MEDS: Enoxaparin 40 MG/0.4 ML Syringe SUBCUT SCH (08:25)
[2021-09-20] MEDS: Insulin Lispro 100 Unit/ML 3 ML KwikPen SUBCUT SCH ×4 (08:30→21:02)
[2021-09-20] MEDS ORDERED: Ondansetron 4 MG Tab.DIS PO PRN (13:03)
[2021-09-20] MEDS: Folic Acid 1 MG Tab PO SCH (13:37)
[2021-09-20] MEDS: Pravastatin 20 MG Tab PO SCH (13:38)
[2021-09-20] MEDS: Levothyroxine 75 MCG Tab PO SCH (13:38)
[2021-09-20] MEDS: Gabapentin 300 MG Cap PO SCH ×2 (13:38→20:46)
[2021-09-20] MEDS: Lisinopril 20 MG Tab PO SCH (13:39)
[2021-09-20] MEDS: Pantoprazole 40 MG Tab.CR PO SCH (13:39)
[2021-09-20] MEDS: Levothyroxine 100 MCG Tab PO SCH (13:40)
[2021-09-20] MEDS: Sertraline 50 MG Tab PO SCH (13:40)
[2021-09-20] MEDS: buPROPion 150 MG Tab.ER PO SCH (13:48)
[2021-09-20] MEDS: Insulin Glargine,Hum.Rec.Anlog 100 UNIT/ML 3 ML Pen SUBCUT SCH (13:49)
[2021-09-20] MEDS: Potassium Chloride 20 MEQ Tab.ER PO SCH (13:55)
[2021-09-20] MEDS: cefTRIAXone 1 GM in Sodium Chloride 0.9% 100 ML IV SCH (20:39)
[2021-09-20] MEDS: Multivitamin Tab PO SCH (20:45)
[2021-09-20] MEDS: ClonazePAM 0.5 MG Tab PO SCH (20:45)
[2021-09-20] MEDS: hydrOXYzine HCl 25 MG Tab PO SCH (20:45)
[2021-09-20] MEDS ORDERED: [UNRECOGNIZED DRUG - OTHER] PO SCH (21:00)
[2021-09-20] MEDS ORDERED: ASCORBIC ACID PO SCH (21:00)
[2021-09-20] MEDS ORDERED: CRANBERRY PO SCH (21:00)
[2021-09-21] MEDS: Levothyroxine 100 MCG Tab PO SCH (05:06)
[2021-09-21] MEDS: Levothyroxine 75 MCG Tab PO SCH (05:07)
[2021-09-21] MEDS: Insulin Lispro 100 Unit/ML 3 ML KwikPen SUBCUT SCH ×5 (06:16→21:08)
[2021-09-21] MEDS: Sertraline 50 MG Tab PO SCH (09:20)
[2021-09-21] MEDS: Multivitamin Tab PO SCH ×2 (09:20→21:03)
[2021-09-21] MEDS: Gabapentin 300 MG Cap PO SCH (09:20)
[2021-09-21] MEDS: Potassium Chloride 20 MEQ Tab.ER PO SCH (09:20)
[2021-09-21] MEDS: Saccharomyces Boulardii (Probiotic) 250 MG Cap PO SCH (09:20)
[2021-09-21] MEDS: Pantoprazole 40 MG Tab.CR PO SCH (09:21)
[2021-09-21] MEDS: buPROPion 150 MG Tab.ER PO SCH (09:21)
[2021-09-21] MEDS: Furosemide 40 MG Tab PO SCH (09:21)
[2021-09-21] MEDS: Pravastatin 20 MG Tab PO SCH (09:21)
[2021-09-21] MEDS: Lisinopril 20 MG Tab PO SCH (09:22)
[2021-09-21] MEDS: Folic Acid 1 MG Tab PO SCH (09:22)
[2021-09-21] MEDS: Enoxaparin 40 MG/0.4 ML Syringe SUBCUT SCH (09:23)
[2021-09-21] MEDS: Insulin Glargine,Hum.Rec.Anlog 100 UNIT/ML 3 ML Pen SUBCUT SCH (09:24)
[2021-09-21] MEDS ORDERED: Gabapentin 600 MG Tab PO SCH (21:00)
[2021-09-21] MEDS: ClonazePAM 0.5 MG Tab PO SCH (21:01)
[2021-09-21] MEDS: hydrOXYzine HCl 25 MG Tab PO SCH (21:03)
[2021-09-21] MEDS: cefTRIAXone 1 GM in Sodium Chloride 0.9% 100 ML IV SCH (21:06)
[2021-09-21] MEDS: oxyCODONE 5 MG Tab PO PRN (23:47)
[2021-09-22] MEDS: Levothyroxine 100 MCG Tab PO SCH (05:37)
[2021-09-22] MEDS: Levothyroxine 75 MCG Tab PO SCH (05:38)
[2021-09-22] MEDS: Lisinopril 20 MG Tab PO SCH (09:44)
[2021-09-22] MEDS: Gabapentin 300 MG Cap PO SCH ×2 (09:44→12:43)
[2021-09-22] MEDS: Pantoprazole 40 MG Tab.CR PO SCH (09:44)
[2021-09-22] MEDS: Multivitamin Tab PO SCH (09:44)
[2021-09-22] MEDS: buPROPion 150 MG Tab.ER PO SCH (09:44)
[2021-09-22] MEDS: Saccharomyces Boulardii (Probiotic) 250 MG Cap PO SCH (09:44)
[2021-09-22] MEDS: Folic Acid 1 MG Tab PO SCH (09:45)
[2021-09-22] MEDS: Potassium Chloride 20 MEQ Tab.ER PO SCH (09:45)
[2021-09-22] MEDS: Enoxaparin 40 MG/0.4 ML Syringe SUBCUT SCH (09:45)
[2021-09-22] MEDS: Pravastatin 20 MG Tab PO SCH (09:45)
[2021-09-22] MEDS: Insulin Glargine,Hum.Rec.Anlog 100 UNIT/ML 3 ML Pen SUBCUT SCH (09:46)
[2021-09-22] MEDS: Sertraline 50 MG Tab PO SCH (09:46)
[2021-09-22] MEDS: Furosemide 40 MG Tab PO SCH (09:48)
[2021-09-22] MEDS: Insulin Lispro 100 Unit/ML 3 ML KwikPen SUBCUT SCH ×2 (10:02→13:52)
[2021-09-22 12:11] VITALS: BP 140/75; PULSE 92
== END 2021-09-22 17:05 | disposition home or self-care (01) | DRG 690 ==
LOC: JD.ED 16:33 → JD.MS 20:06 → OBSVTOIN 09-20 11:44
PROVIDERS: ADMIT Family Medicine; ATTEND Pediatrics
DX: N30.01 Acute cystitis with hematuria (principal); E87.1 Hypo-osmolality and hyponatremia; E11.65 Type 2 diabetes mellitus with hyperglycemia; D84.9 Immunodeficiency, unspecified; D63.8 Anemia in other chronic diseases classified elsewhere; I10 Essential (primary) hypertension; R29.6 Repeated falls; M19.90 Unspecified osteoarthritis, unspecified site; L40.50 Arthropathic psoriasis, unspecified; N28.9 Disorder of kidney and ureter, unspecified; E11.42 Type 2 diabetes mellitus with diabetic polyneuropathy; E03.9 Hypothyroidism, unspecified; E55.9 Vitamin D deficiency, unspecified; E61.1 Iron deficiency; Z20.822 Contact with and (suspected) exposure to COVID-19; Z98.84 Bariatric surgery status; L40.9 Psoriasis, unspecified; H54.7 Unspecified visual loss; K21.9 Gastro-esophageal reflux disease without esophagitis; Z79.890 Hormone replacement therapy; Z79.4 Long term (current) use of insulin; Z79.899 Other long term (current) drug therapy; F41.9 Anxiety disorder, unspecified; F32.A Depression, unspecified; E78.00 Pure hypercholesterolemia, unspecified; E11.40 Type 2 diabetes mellitus with diabetic neuropathy, unspecified; Z96.649 Presence of unspecified artificial hip joint; T25.0 Burn of unspecified degree of ankle and foot; E11.21 Type 2 diabetes mellitus with diabetic nephropathy; T25.232A Burn of second degree of left toe(s) (nail), initial encounter; E86.1 Hypovolemia; Z91.040 Latex allergy status; Z88.8 Allergy status to other drugs, medicaments and biological substances; Z90.49 Acquired absence of other specified parts of digestive tract; Z90.710 Acquired absence of both cervix and uterus
CPT/HCPCS: 36415 ×2; 51701; 70450; 80053 ×2; 81001; 82947 ×4; 83036; 83735; 83930; 84100; 84300; 84484; 85007; 85025; 85027; 86140; 87086; 87088 ×2; 87186 ×2; 96365; 99285; A9270 ×2; J0696; J1650; J1815; J7030 ×3; U0002; 97116-GP; 97162-GP; 97530-GP; 97535-GP; 97597-GP; J2405

== ENCOUNTER 2022-09-20 20:41 | Inpatient (IN) | payer MEDICARE, OTHER ==
[2022-09-20] MEDS ORDERED: Sodium Chloride 0.9% 1,000 ML IV SCH (21:00)
[2022-09-20] MEDS ORDERED: Sodium Chloride 0.9% 10 ML Syringe FLUSH PRN (21:00)
[2022-09-20] MEDS ORDERED: Ondansetron 4 MG/2 ML SDV IVPUSH ONE (21:00)
[2022-09-20 21:34] LABS: ESTIMATED GFR 29 mL/min (>60)
[2022-09-20] MEDS ORDERED: Sodium Chloride 0.9% 1,000 ML IV ONE (22:28)
[2022-09-20] MEDS ORDERED: Metoclopramide 10 MG/2 ML SDV IVPUSH ONE (22:45)
[2022-09-20] MEDS ORDERED: diphenhydrAMINE 50 MG/ML SDV IVPUSH ONE (22:45)
[2022-09-20] MEDS ORDERED: Lactated Ringers 1,000 ML IV ONE (23:18)
[2022-09-21] MEDS ORDERED: Acetaminophen 325 MG Tab PO PRN (00:52)
[2022-09-21] MEDS ORDERED: Lactated Ringers 1,000 ML IV ONE ×2 (01:07→01:10)
[2022-09-21] MEDS: Insulin Regular in 0.9 % NACL 100 ML IV SCH ×2 (01:31→09:08)
[2022-09-21] MEDS ORDERED: Docusate Sodium 100 MG Cap PO PRN (07:57)
[2022-09-21] MEDS ORDERED: Lactated Ringers 1,000 ML IV SCH (08:00)
[2022-09-21] MEDS: Potassium Chloride 10 MEQ in Premix Bag 1 BAG IV SCH ×8 (08:24→16:01)
[2022-09-21] MEDS: Enoxaparin 40 MG/0.4 ML Syringe SUBCUT SCH (08:29)
[2022-09-21] MEDS: Ondansetron 4 MG/2 ML SDV IVPUSH PRN ×2 (08:29→14:37)
[2022-09-21] MEDS ORDERED: Pantoprazole 40 MG Vial IVPUSH SCH (09:00)
[2022-09-21] MEDS: Dextrose 5%-0.9% NaCl 1,000 ML IV SCH ×2 (10:39→19:59)
[2022-09-21] MEDS ORDERED: Insulin Regular in 0.9 % NACL 100 ML IV SCH ×2 (11:15→21:45)
[2022-09-21] MEDS ORDERED: traMADol 50 MG Tab PO PRN (12:01)
[2022-09-21 13:21] LABS: HEMOGLOBIN A1C 10.4 %
[2022-09-21] MEDS: buPROPion 150 MG Tab.ER PO SCH ×2 (14:10→22:24)
[2022-09-21] MEDS: Levothyroxine 100 MCG Tab PO SCH (14:10)
[2022-09-21] MEDS: Gabapentin 300 MG Cap PO SCH ×2 (14:10→22:20)
[2022-09-21] MEDS: Sertraline 50 MG Tab PO SCH ×2 (14:10→22:25)
[2022-09-21] MEDS ORDERED: Prochlorperazine 10 MG/2 ML SDV IVPUSH ONE (15:09)
[2022-09-21] MEDS ORDERED: Insulin Glargine,Human Rec. Analog 100 Units/ML 3 ML Pen SUBCUT STA (19:15)
[2022-09-21] MEDS ORDERED: ClonazePAM 0.5 MG Tab PO SCH (21:00)
[2022-09-21] MEDS ORDERED: hydrOXYzine HCl 25 MG Tab PO SCH (21:00)
[2022-09-21] MEDS: Insulin Lispro 100 Unit/ML 3 ML KwikPen SUBCUT SCH (22:17)
[2022-09-22] MEDS: Levothyroxine 100 MCG Tab PO SCH (06:20)
[2022-09-22] MEDS: Insulin Lispro 100 Unit/ML 3 ML KwikPen SUBCUT SCH ×2 (07:08→11:46)
[2022-09-22] MEDS: Enoxaparin 40 MG/0.4 ML Syringe SUBCUT SCH (08:01)
[2022-09-22] MEDS: Gabapentin 300 MG Cap PO SCH ×2 (08:01→14:39)
[2022-09-22] MEDS: Sertraline 50 MG Tab PO SCH (08:01)
[2022-09-22] MEDS: buPROPion 150 MG Tab.ER PO SCH (08:01)
[2022-09-22] MEDS ORDERED: Insulin Glargine,Human Rec. Analog 100 Units/ML 3 ML Pen SUBCUT SCH ×2 (09:00→21:00)
[2022-09-22] MEDS ORDERED: Pantoprazole 40 MG Tab.CR PO SCH (09:00)
[2022-09-22 16:21] VITALS: BP 153/86; PULSE 86
[2022-09-23] MEDS ORDERED: Insulin Glargine,Human Rec. Analog 100 Units/ML 3 ML Pen SUBCUT SCH (09:00)
== END 2022-09-22 16:31 | disposition home or self-care (01) | DRG 638 ==
LOC: JD.ED 20:41 → JD.ICU 23:23
PROVIDERS: ADMIT Internal Medicine; ATTEND Internal Medicine
DX: E11.10 Type 2 diabetes mellitus with ketoacidosis without coma (principal); E08.10 Diabetes mellitus due to underlying condition with ketoacidosis without coma; D84.9 Immunodeficiency, unspecified; E86.0 Dehydration; F41.9 Anxiety disorder, unspecified; E11.65 Type 2 diabetes mellitus with hyperglycemia; E78.5 Hyperlipidemia, unspecified; I10 Essential (primary) hypertension; A08.4 Viral intestinal infection, unspecified; K21.9 Gastro-esophageal reflux disease without esophagitis; L40.50 Arthropathic psoriasis, unspecified; D50.9 Iron deficiency anemia, unspecified; Z87.440 Personal history of urinary (tract) infections; E03.9 Hypothyroidism, unspecified; M79.10 Myalgia, unspecified site; F32.9 Major depressive disorder, single episode, unspecified; E55.9 Vitamin D deficiency, unspecified; N20.0 Calculus of kidney; E78.00 Pure hypercholesterolemia, unspecified; E66.9 Obesity, unspecified; Z96.649 Presence of unspecified artificial hip joint; Z98.84 Bariatric surgery status; Z91.040 Latex allergy status; Z88.8 Allergy status to other drugs, medicaments and biological substances; Z79.4 Long term (current) use of insulin; Z79.890 Hormone replacement therapy; Z79.899 Other long term (current) drug therapy; Z68.25 Body mass index [BMI] 25.0-25.9, adult; Z90.710 Acquired absence of both cervix and uterus; Z90.49 Acquired absence of other specified parts of digestive tract
CPT/HCPCS: 36415; 74176; 80053; 82009; 82800; 83690; 83930; 85025; 86140; 96361; 96374; 96375; 99285; J1200; J2405; J2765; J3490; J7030 ×2; 80048; 81001; 82947; 83036; 83735; 84100; A9270-GY; C9113; J0780; J1650; J1815; J1815-GY; J3480; J7042; J7120

== ENCOUNTER 2023-12-13 20:49 | Emergency (ER) | payer MEDICARE, OTHER ==
[2023-12-13 21:51] LABS: BASOPHILS ABSOLUTE AUTO 0.1 K/mm3 (0.0-0.2); EOSINOPHILS ABSOLUTE AUTO 0.5 K/mm3 (0.0-0.4); EOSINOPHILS PERCENT AUTO 6.9 % (0.0-6.0); HEMATOCRIT 29.5 % (37.0-47.0); HEMOGLOBIN 9.8 gm/dl (12.0-16.0); IMMATURE GRAN ABSOLUTE AUTO 0.02 K/mm3 (0.00-0.05); IMMATURE GRAN PERCENT AUTO 0.3 % (0.0-0.4); LYMPHOCYTES ABSOLUTE AUTO 2.1 K/mm3 (1.0-4.8); LYMPHOCYTES PERCENT AUTO 30.6 % (24.0-44.0); MEAN CORPUSCULAR HEMOGLOBIN 29.6 pg (28.0-32.0); MEAN CORPUSCULAR HGB CONC 33.2 g/dl (32.0-36.0); MEAN CORPUSCULAR VOLUME 89.1 fl (83.0-99.0); MEAN PLATELET VOLUME 10.8 fl (9.4-12.3); NEUTROPHILS ABSOLUTE AUTO 3.3 K/mm3 (1.8-7.7); NEUTROPHILS PERCENT AUTO 47.2 % (41.0-71.0); PLATELET COUNT,PLT 280 K/mm3 (150-400); RED BLOOD CELL COUNT 3.31 M/mm3 (4.10-5.30); WHITE BLOOD CELL COUNT,WBC 6.95 K/mm3 (3.9-11.3)
[2023-12-13 22:15] LABS: A/G RATIO 0.9 (1-2); ALBUMIN 3.1 g/dl (3.4-5.0); ANION GAP 15.6 (5-15); BILIRUBIN TOTAL 0.2 mg/dL (0.2-1.0); BUN/CREATININE RATIO 15.6 (14-18); CALCIUM 8.3 mg/dL (8.5-10.1); CREATININE 2.7 mg/dL (0.55-1.02); EST CRCL DRUG DOSING (CG) 24.86 mL/min; MAGNESIUM 2.4 mg/dL (1.8-2.4); POTASSIUM,K 4.6 mEq/L (3.5-5.1); PROTEIN TOTAL,TP 6.5 g/dl (6.4-8.2)
[2023-12-13] MEDS: Sodium Chloride 0.9% 10 ML Syringe FLUSH PRN (22:55)
[2023-12-13] MEDS: Sodium Chloride 0.9% 1,000 ML IV STA (22:55)
[2023-12-14] MEDS: Sodium Chloride 0.9% 1,000 ML IV STA (00:01)
[2023-12-14 01:55] LABS: ANION GAP 17.4 (5-15); BUN/CREATININE RATIO 16.7 (14-18); CALCIUM 8.2 mg/dL (8.5-10.1); CREATININE 2.4 mg/dL (0.55-1.02); EST CRCL DRUG DOSING (CG) 27.97 mL/min; POTASSIUM,K 4.4 mEq/L (3.5-5.1)
[2023-12-14] MEDS: Lactated Ringers 1,000 ML IV STA (03:58)
[2023-12-14 06:32] LABS: ANION GAP 14.2 (5-15); BUN/CREATININE RATIO 16.1 (14-18); CALCIUM 8.3 mg/dL (8.5-10.1); CREATININE 2.3 mg/dL (0.55-1.02); EST CRCL DRUG DOSING (CG) 29.18 mL/min; POTASSIUM,K 4.2 mEq/L (3.5-5.1)
[2023-12-14 07:47] VITALS: BP 123/92; PULSE 75
== END 2023-12-14 07:32 | disposition home or self-care (01) ==
LOC: JD.ED 20:49
DX: R25.2 Cramp and spasm (principal); E86.0 Dehydration; I12.9 Hypertensive chronic kidney disease with stage 1 through stage 4 chronic kidney disease, or unspecified chronic kidney disease; N18.9 Chronic kidney disease, unspecified; E78.00 Pure hypercholesterolemia, unspecified; E11.22 Type 2 diabetes mellitus with diabetic chronic kidney disease; E03.9 Hypothyroidism, unspecified; E66.9 Obesity, unspecified; K21.9 Gastro-esophageal reflux disease without esophagitis; Z90.710 Acquired absence of both cervix and uterus; Z79.4 Long term (current) use of insulin; Z68.22 Body mass index [BMI] 22.0-22.9, adult; Z79.899 Other long term (current) drug therapy; Z91.040 Latex allergy status; Z88.8 Allergy status to other drugs, medicaments and biological substances
CPT/HCPCS: 36415; 80048; 80053; 82550; 83735; 85025; 96360; 96361; 99283; J3490; J7030; J7120; 99284

== ENCOUNTER 2025-02-12 21:17 | Emergency (ER) | payer MEDICARE, OTHER ==
[2025-02-12] MEDS: Fluorescein 1 MG Ophth Strip EYEBOTH ONE (22:28)
[2025-02-13 00:36] VITALS: BP 123/78; PULSE 78
== END 2025-02-13 00:20 | disposition home or self-care (01) ==
LOC: JD.ED 21:17
DX: S05.01XA Injury of conjunctiva and corneal abrasion without foreign body, right eye, initial encounter (principal); I10 Essential (primary) hypertension; K21.9 Gastro-esophageal reflux disease without esophagitis; E11.9 Type 2 diabetes mellitus without complications; E03.9 Hypothyroidism, unspecified; E66.9 Obesity, unspecified; Z90.710 Acquired absence of both cervix and uterus; Z79.899 Other long term (current) drug therapy; Z79.4 Long term (current) use of insulin; Z88.8 Allergy status to other drugs, medicaments and biological substances; Z91.040 Latex allergy status; Z68.33 Body mass index [BMI] 33.0-33.9, adult; X58.XXXA Exposure to other specified factors, initial encounter
CPT/HCPCS: 99283; A9270; J3490

== ENCOUNTER 2025-03-20 00:32 | Emergency (ER) | payer MEDICARE, OTHER ==
[2025-03-20] MEDS ORDERED: Sodium Chloride 0.9% 10 ML Syringe FLUSH PRN (01:35)
[2025-03-20] MEDS: Ondansetron 4 MG/2 ML SDV IVPUSH ONE (01:56)
[2025-03-20 02:01] LABS: BASOPHILS ABSOLUTE AUTO 0.1 K/mm3 (0.0-0.2); BASOPHILS PERCENT AUTO 0.7 % (0.0-1.0); EOSINOPHILS ABSOLUTE AUTO 0.4 K/mm3 (0.0-0.4); EOSINOPHILS PERCENT AUTO 5.5 % (0.0-6.0); IMMATURE GRAN ABSOLUTE AUTO 0.02 K/mm3 (0.00-0.05); IMMATURE GRAN PERCENT AUTO 0.3 % (0.0-0.4); LYMPHOCYTES ABSOLUTE AUTO 1.5 K/mm3 (1.0-4.8); LYMPHOCYTES PERCENT AUTO 19.0 % (24.0-44.0); MEAN PLATELET VOLUME 10.6 fl (9.4-12.3); MONOCYTES ABSOLUTE AUTO 1.1 K/mm3 (0.0-0.8); MONOCYTES PERCENT AUTO 14.7 % (0.0-8.0); NEUTROPHILS ABSOLUTE AUTO 4.6 K/mm3 (1.8-7.7); NEUTROPHILS PERCENT AUTO 59.8 % (41.0-71.0); NRBC ABSOLUTE 0.00 (0.00-0.02); NRBC PERCENT 0.0 % (0.0-0.2); PLATELET COUNT,PLT 236 K/mm3 (150-400); RED BLOOD CELL COUNT 3.45 M/mm3 (4.10-5.30); WHITE BLOOD CELL COUNT,WBC 7.68 K/mm3 (3.9-11.3)
[2025-03-20 02:36] LABS: A/G RATIO 0.9 (1-2); ALANINE AMINOTRANSFERASE,ALT 52 U/L (14-59); ASPARTATE AMNIOTRANSFERASE,AST 39 U/L (15-37); BILIRUBIN TOTAL 0.3 mg/dL (0.2-1.0); BLOOD UREA NITROGEN,BUN 34 mg/dL (7-18); CARBON DIOXIDE,CO2 20 mEq/L (21-32); CHLORIDE,CL 103 mEq/L (98-107); CREATININE 2.4 mg/dL (0.55-1.02); ESTIMATED GFR 23 mL/min (>60); GLUCOSE RANDOM 293 mg/dL (70-99); PHOSPHORUS 6.5 mg/dL (2.6-4.7); PROTEIN TOTAL,TP 6.8 g/dl (6.4-8.2); SODIUM,NA 134 mEq/L (136-145)
[2025-03-20 02:46] LABS: POTASSIUM,K 4.7 mEq/L (3.5-5.1)
[2025-03-20 03:32] LABS: APPEARANCE,URINE CLEAR (Clear); GLUCOSE,URINE TRACE (Negative); OCCULT BLOOD,URINE NEGATIVE (Negative)
[2025-03-20 03:40] LABS: EPITHELIAL CELLS,URINE 0-5 /hpf (0-5)
[2025-03-20 07:06] VITALS: BP 150/78; PULSE 87
[2025-03-23 07:43] LABS: INTACT PTH 168 pg/mL (15-65)
== END 2025-03-20 07:05 | disposition home or self-care (01) ==
LOC: JD.ED 00:32
DX: E11.649 Type 2 diabetes mellitus with hypoglycemia without coma (principal); E83.39 Other disorders of phosphorus metabolism; E78.00 Pure hypercholesterolemia, unspecified; I10 Essential (primary) hypertension; K21.9 Gastro-esophageal reflux disease without esophagitis; E03.9 Hypothyroidism, unspecified; Z91.040 Latex allergy status; Z88.8 Allergy status to other drugs, medicaments and biological substances; Z79.4 Long term (current) use of insulin; Z79.899 Other long term (current) drug therapy
CPT/HCPCS: 36415; 80053; 81001; 82010; 82550; 82947; 83735; 83970; 84100; 85025; 87040; 93005; 96361; 96374; 99285; J2405; J7030; 93010; 99284

== ENCOUNTER 2025-06-18 00:10 | Emergency (ER) | payer MEDICARE, OTHER ==
[2025-06-18] MEDS: 50% Dextrose in Water 50 ML Syringe IVPUSH PRN (00:16)
[2025-06-18 00:20] LABS: BASOPHILS ABSOLUTE AUTO 0.1 K/mm3 (0.0-0.2); BASOPHILS PERCENT AUTO 1.0 % (0.0-1.0); EOSINOPHILS ABSOLUTE AUTO 0.8 K/mm3 (0.0-0.4); EOSINOPHILS PERCENT AUTO 11.1 % (0.0-6.0); IMMATURE GRAN ABSOLUTE AUTO 0.02 K/mm3 (0.00-0.05); IMMATURE GRAN PERCENT AUTO 0.3 % (0.0-0.4); LYMPHOCYTES ABSOLUTE AUTO 2.7 K/mm3 (1.0-4.8); LYMPHOCYTES PERCENT AUTO 38.2 % (24.0-44.0); MEAN PLATELET VOLUME 10.6 fl (9.4-12.3); MONOCYTES ABSOLUTE AUTO 0.9 K/mm3 (0.0-0.8); MONOCYTES PERCENT AUTO 12.5 % (0.0-8.0); NEUTROPHILS ABSOLUTE AUTO 2.6 K/mm3 (1.8-7.7); NEUTROPHILS PERCENT AUTO 36.9 % (41.0-71.0); NRBC ABSOLUTE 0.00 (0.00-0.02); NRBC PERCENT 0.0 % (0.0-0.2); PLATELET COUNT,PLT 347 K/mm3 (150-400); RED BLOOD CELL COUNT 3.81 M/mm3 (4.10-5.30); WHITE BLOOD CELL COUNT,WBC 7.02 K/mm3 (3.9-11.3)
[2025-06-18 00:48] LABS: A/G RATIO 0.8 (1-2); ALANINE AMINOTRANSFERASE,ALT 48 U/L (14-59); ASPARTATE AMNIOTRANSFERASE,AST 44 U/L (15-37); BILIRUBIN TOTAL 0.3 mg/dL (0.2-1.0); BLOOD UREA NITROGEN,BUN 31 mg/dL (7-18); CARBON DIOXIDE,CO2 24 mEq/L (21-32); CHLORIDE,CL 112 mEq/L (98-107); CREATININE 1.8 mg/dL (0.55-1.02); ESTIMATED GFR 32 mL/min (>60); GLUCOSE RANDOM 74 mg/dL (70-99); POTASSIUM,K 4.4 mEq/L (3.5-5.1); PROTEIN TOTAL,TP 6.7 g/dl (6.4-8.2); SODIUM,NA 144 mEq/L (136-145); TROPONIN I HIGH SENSITIVITY 9 pg/mL (<=51)
[2025-06-18 02:52] LABS: ETHANOL BLOOD MEDICAL 0.00 gm% (0.00)
[2025-06-18 02:59] VITALS: BP 119/75; PULSE 63
== END 2025-06-18 02:36 | disposition home or self-care (01) ==
LOC: JD.ED 00:10
DX: E11.649 Type 2 diabetes mellitus with hypoglycemia without coma (principal); E86.0 Dehydration; E11.22 Type 2 diabetes mellitus with diabetic chronic kidney disease; I12.9 Hypertensive chronic kidney disease with stage 1 through stage 4 chronic kidney disease, or unspecified chronic kidney disease; N18.9 Chronic kidney disease, unspecified; E78.00 Pure hypercholesterolemia, unspecified; K21.9 Gastro-esophageal reflux disease without esophagitis; E03.9 Hypothyroidism, unspecified; Z90.49 Acquired absence of other specified parts of digestive tract; Z90.710 Acquired absence of both cervix and uterus; Z88.8 Allergy status to other drugs, medicaments and biological substances; Z91.040 Latex allergy status; Z79.4 Long term (current) use of insulin; Z79.890 Hormone replacement therapy; Z79.899 Other long term (current) drug therapy
CPT/HCPCS: 36415; 80053; 80307; 82947; 83690; 83735; 84484; 85025; 96361; 96374; 99285; J7030; 99284